=== PATIENT | female | born 1990 | race Caucasian/White ===

== ENCOUNTER 2017-06-29 18:45 | Inpatient (IN) | payer OTHER ==
[2017-06-29] MEDS ORDERED: METHYLERGONOVINE 0.2 MG INJ IM ×2 (20:00→20:30)
[2017-06-29] MEDS ORDERED: CARBOPROST 250 MCG INJ IM ×2 (20:00→20:30)
[2017-06-29] MEDS ORDERED: LACTATED RINGER'S 500 ML IV (20:00)
[2017-06-29] MEDS ORDERED: MISOPROSTOL 200 MCG TAB PR ×2 (20:00→20:30)
[2017-06-29] MEDS ORDERED: IBUPROFEN 600 MG TAB PO ×2 (20:00→20:30)
[2017-06-29] MEDS ORDERED: BUTORPHANOL 2 MG INJ IV ×3 (20:00→20:30)
[2017-06-29] MEDS ORDERED: LIDOCAINE 1% (MPF) 30 ML INJ INJ ×2 (20:00→20:30)
[2017-06-29] MEDS ORDERED: OXYTOCIN 30 UNITS/LR 500 ML IV ×5 (20:00→20:30)
[2017-06-29] MEDS ORDERED: LACTATED RINGER'S 1,000 ML IV ×3 (20:03)
[2017-06-29] MEDS: LACTATED RINGER'S 1,000 ML IV (20:24)
[2017-06-29 20:28] LABS: ADD MAN DIFF? NO
[2017-06-29] MEDS: AMPICILLIN 2 GM/NS (PMX) 100 ML IV (20:28)
[2017-06-29 20:30] LABS: WHITE BLOOD COUNT 10.7 10^3/ul (4.8-10.8)
[2017-06-29 20:30] LABS: BASOPHIL # 0.1 10^3/ul (0.0-0.1); BASOPHILS % 0.5 % (0.0-2.0); EOSINOPHILS # 0.2 10^3/ul (0.0-0.5); EOSINOPHILS % 1.5 % (0.0-7.0); HEMATOCRIT 35.1 % (37.0-47.0); HEMOGLOBIN 11.8 g/dl (12.0-16.0); LYMPHOCYTES % 18.4 % (15.0-51.0); MEAN CORPUSCULAR HEMOGLOBIN 28.6 pg (29.0-33.0); MEAN CORPUSCULAR HGB CONC 33.6 g/dl (32.0-37.0); MEAN CORPUSCULAR VOLUME 85.2 fl (82.0-101.0); MEAN PLATELET VOLUME 10.2 fl (7.4-10.4); MONOCYTE # 0.7 10^3/ul (0.3-0.9); MONOCYTES % 6.6 % (0.0-11.0); NEUTROPHIL # 7.7 10^3/ul (1.6-7.5); NEUTROPHILS % 71.7 % (39.0-77.0); PLATELET COUNT 262 10^3/UL (140-415); RED BLOOD COUNT 4.12 10^6/ul (4.20-5.40); RED CELL DISTRIBUTION WIDTH 13.6 % (11.5-14.5)
[2017-06-29] MEDS: OXYTOCIN 30 UNITS/LR 500 ML IV (20:40)
[2017-06-29 20:45] LABS: PROTIME 12.2 Sec (11.9-14.9)
[2017-06-29 20:46] LABS: PARTIAL THROMBOPLASTIN TIME 26.7 Sec (25.0-35.0)
[2017-06-30] MEDS: AMPICILLIN 1 GM/NS (PMX) 50 ML IV ×2 (00:20→05:16)
[2017-06-30] MEDS: LACTATED RINGER'S 1,000 ML IV ×2 (02:05→05:17)
[2017-06-30] MEDS ORDERED: FENTAnyl 2MCG/ML-ROPIV 0.2% 100 ML (02:53)
[2017-06-30] MEDS ORDERED: NALOXONE (0.4 MG/ML) INJ IV (03:30)
[2017-06-30] MEDS: FENTAnyl 2MCG/ML-ROPIV 0.2% 100 ML BAG EPI (05:17)
[2017-06-30] MEDS: OXYTOCIN 30 UNITS/LR 500 ML IV ×4 (05:19→20:30)
[2017-06-30] MEDS: ACETAMINOPHEN 325 MG TAB PO (08:28)
[2017-06-30] MEDS ORDERED: OXYCODONE/ASPIRIN (4.88/325) TAB PO (09:30)
[2017-06-30] MEDS ORDERED: OXYTOCIN 30 UNITS/LR 500 ML IV (09:30)
[2017-06-30] MEDS ORDERED: ZOLPIDEM 5 MG TAB PO (09:30)
[2017-06-30] MEDS ORDERED: SENNA/DOCUSATE NA (8.6MG/50MG) TAB PO (09:30)
[2017-06-30] MEDS ORDERED: CARBOPROST 250 MCG INJ IM (09:30)
[2017-06-30] MEDS ORDERED: METHYLERGONOVINE 0.2 MG INJ IM (09:30)
[2017-06-30] MEDS ORDERED: MISOPROSTOL 200 MCG TAB PR (09:30)
[2017-06-30] MEDS: WITCH HAZEL/GLYCERIN PAD PR (11:33)
[2017-06-30] MEDS: IBUPROFEN 600 MG TAB PO ×2 (11:33→17:58)
[2017-06-30] MEDS: BENZOCAINE 20% 56 ML SPRAY TOP (11:34)
[2017-06-30 15:07] LABS: RAPID PLASMA REAGIN NONREACTIVE (NR)
[2017-06-30] MEDS: SENNA/DOCUSATE NA (8.6MG/50MG) TAB PO (21:12)
[2017-07-01] MEDS: IBUPROFEN 600 MG TAB PO ×5 (03:45→23:32)
[2017-07-01] MEDS: SENNA/DOCUSATE NA (8.6MG/50MG) TAB PO ×2 (09:09→20:39)
[2017-07-01 09:48] LABS: WHITE BLOOD COUNT 13.3 10^3/ul (4.8-10.8)
[2017-07-01 09:48] LABS: HEMATOCRIT 28.8 % (37.0-47.0); HEMOGLOBIN 9.8 g/dl (12.0-16.0); MEAN CORPUSCULAR HEMOGLOBIN 28.8 pg (29.0-33.0); MEAN CORPUSCULAR VOLUME 84.7 fl (82.0-101.0); MEAN PLATELET VOLUME 10.7 fl (7.4-10.4); PLATELET COUNT 155 10^3/UL (140-415)
[2017-07-01 10:04] LABS: ADD MAN DIFF? YES; POSITIVE DIFF @See below
[2017-07-01 11:07] LABS: ANISOCYTOSIS 1+ (0-0); BAND NEUTROPHILS #M 1.9 10^3/ul (0.0-0.6); BAND NEUTROPHILS % (M) 15 % (0-4); LYMPHOCYTES #M 1.4 10^3/ul (0.8-2.9); LYMPHOCYTES % (M) 11 % (15-51); MICROCYTOSIS 1+ (0-0); MONOCYTE #M 0.5 10^3/ul (0.3-0.9); MONOCYTES % (M) 4 % (0-11); PLATELET ESTIMATE NORMAL; SEG NEUT #M 9.6 10^3/ul (1.7-7.5); SEGMENTED NEUTROPHILS (M) % 70 % (39-77); SMUDGE%M 6 % (0-0)
[2017-07-01] MEDS: INFLUENZA VIRUS VACCINE 0.5 ML (DISPENSING) IM* (12:24)
[2017-07-01] MEDS: LANOLIN 7 GM TUBE TOP (20:39)
[2017-07-02] MEDS: IBUPROFEN 600 MG TAB PO ×2 (05:44→12:07)
[2017-07-02] MEDS ORDERED: INFLUENZA VIRUS VACCINE 0.5 ML (DISPENSING) IM* (09:00)
[2017-07-02] MEDS: SENNA/DOCUSATE NA (8.6MG/50MG) TAB PO (09:46)
[2017-07-02] MEDS: DIPHTH/TET/ACEL PERTUSS (ADULT) 0.5 ML VIAL IM* (09:48)
== END 2017-07-02 14:50 | disposition home or self-care (01) | DRG 775 ==
LOC: PP1 06-30 08:40 → L-D 18:45
PROVIDERS: Obstetrics & Gynecology
PROC: 10E0XZZ Delivery of Products of Conception, External Approach (ICD-10-PCS; principal; 2017-06-30)
PROC: 0KQM0ZZ Repair Perineum Muscle, Open Approach (ICD-10-PCS; 2017-06-30)
PROC: 3E033VJ Introduction of Other Hormone into Peripheral Vein, Percutaneous Approach (ICD-10-PCS; 2017-06-30)
DX: O70.1 Second degree perineal laceration during delivery (principal); Z37.0 Single live birth; Z3A.39 39 weeks gestation of pregnancy
CPT/HCPCS: 62319; 76815; 85025; 85610; 85730; 86592; 86850; 86900; 86901; 90686; 90715